=== PATIENT | male | born 1970 | race Caucasian/White ===

== ENCOUNTER → 2016-09-06 | Day surgery (SDC) | payer OTHER ==
--- NOTE | 2016-09-08 11:00 | Operative Report ---
Operative/Inv Procedure Report Surgery Date: 09/06/16 Name of Procedure: Open mesh repair of left inguino-scrotal hernia Pre-Operative Diagnosis: Left inguinal scrotal hernia Post-Operative Diagnosis: Same Estimated Blood Loss: scant Surgeon/Psychologist: TONA OSORIO,ANIVAL CRUZ Anesthesia: general endotracheal tube Operative/Procedure Note Note: Patient was placed on the OR table in the supine position. After successful induction of general anesthesia the patient's abdomen pelvis and scrotum were clipped prepped and draped in the usual sterile fashion. We planned a left inguinal incision parallel to the inguinal ligament between the iliac crest and pubis, and 7 cm long given the size of the hernia. Local anesthetic was injected both superficially and deep and then the incision was made with a 10 blade deepened through the subcutaneous layer them with cautery through Tony's fascia we cleared off the external oblique aponeurosis injected more local anesthetic and then incised it with Metzenbaums in the direction of its fibers opening the inguinal canal sparing the ilioinguinal nerve. The defect was both a direct and indirect, about 5 cm wide, continuing into the scrotum. We reduced the incarcerated scrotal contents bimanually, there were adhesions. The colon formed part of the hernia sac, the distal part of which was amputated and then pursestring sutured shut. Next the floor of the defect was imbricated using the thickened redundant sac just to keep it out of the way then we took a Progrip Parietex polypropylene Velcro type mesh with the keyhole oriented and placed it over the defect starting at the pubic tubercle with some medial overlap anchoring it with a 2-0 Prolene suture continuing it inferiorly and laterally running fashion to the shelving edge of the inguinal ligament care was taken to avoid the iliac vessels deep. By this time we had also isolated the cord structures the vas and the main vessels and the pampiniform plexus and retracted them with a Silvestre drain and we had to loop and arrange this keyhole mesh around it restoring the deep ring. The crotch of the mesh at the keyhole was not too loose so we didn't add sutures here. The rest of the mesh was tacked down medially to the rectus fascia superiorly to the internal oblique aponeurosis avoiding injury to the iliohypogastric nerve and laterally towards the ASIS keeping it flat with multiple interrupted 2-0 Vicryl sutures. The area was irrigated. The inguinal incision was closed in layers using 2-0 Vicryl for the external oblique followed by 3-0 Vicryl for Tony's fascia followed by running subcuticular 4-0 Biosyn suture for the skin itself followed by Mastisol Steri- Strips Telfa and an island dressing. EBL minimal Lap and sponge and sponge counts: correct Wound expectancy: Clean IV fluids: crystalloid Complications: none Patient tolerated the procedure well was awakened and extubated and returned to the recovery room in satisfactory condition.
== END ==
LOC: STS 07:00
DX: K40.30 Unilateral inguinal hernia, with obstruction, without gangrene, not specified as recurrent (principal)
CPT/HCPCS: C1781; J0690; J2250